=== PATIENT | male | born 1935 | race Caucasian/White ===

== ENCOUNTER 2019-06-03 16:27 | Emergency (ER) | payer OTHER ==
[~2019-06-03] VITALS: Ht 172.7 cm; Wt 59.0 kg
[2019-06-03 16:28] VITALS: Ht 172.7 cm; Wt 59.0 kg
[2019-06-03 18:56] VITALS: BP 155/83
== END 2019-06-03 18:56 | disposition home or self-care (01) ==
LOC: ED 16:27
DX: S99.921A Unspecified injury of right foot, initial encounter (principal); J44.9 Chronic obstructive pulmonary disease, unspecified; F03.90 Unspecified dementia, unspecified severity, without behavioral disturbance, psychotic disturbance, mood disturbance, and anxiety; W18.39XA Other fall on same level, initial encounter; Y93.89 Activity, other specified; Y92.098 Other place in other non-institutional residence as the place of occurrence of the external cause; Y99.8 Other external cause status
CPT/HCPCS: Q0092

== ENCOUNTER 2019-06-15 22:36 | Inpatient (IN) | payer OTHER ==
[~2019-06-15] VITALS: Ht 162.6 cm; Wt 52.0 kg
[2019-06-15 22:46] VITALS: Ht 162.6 cm; Wt 52.0 kg
[2019-06-16 00:14] LABS: CALCIUM 10.2 mg/dL (8.5-10.1); CARBON DIOXIDE 26.6 mmol/L (21-32); CHLORIDE SERUM 105 mmol/L (98-107); CREATININE SERUM 1.3 mg/dL (0.7-1.3); GLUCOSE SERUM 128 mg/dL (74-106); POTASSIUM SERUM 3.1 mmol/L (3.5-5.1); SODIUM SERUM 142 mmol/L (136-145)
[2019-06-16 00:18] LABS: ALKALINE PHOSPHATASE 98 U/L (46-116); ALT/SGPT 12 U/L (16-63); AST/SGOT 18 U/L (15-37); BILIRUBIN TOTAL 0.4 mg/dL (0.20-1.00)
[2019-06-16 00:22] LABS: ALBUMIN 2.8 g/dL (3.4-5.0); TOTAL PROTEIN, SERUM 8.8 g/dL (6.4-8.2)
[2019-06-16 00:25] LABS: BASOPHIL % 0.5 % (0-2); PLATELET COUNT 336 x10^3mcL (130-400)
[2019-06-16 00:26] LABS: RED CELL DISTRIBUTION WIDTH 16.6 % (11.5-14.5)
[2019-06-16] MEDS ORDERED: PROTONIX40 MG PO (01:39)
[2019-06-16] MEDS ORDERED: LOP600 PO (01:40)
[2019-06-16] MEDS ORDERED: PROVENTIL0.09 MG/A1 INH (01:40)
[2019-06-16] MEDS ORDERED: RESTORIL30 MG PO (01:40)
[2019-06-16] MEDS ORDERED: PROZAC40 MG PO (01:40)
[2019-06-16] MEDS ORDERED: FLONASE SENSIM5.9 ML NS (01:43)
[2019-06-16 02:21] LABS: CHOLESTEROL/HDL RATIO 3.7
[2019-06-16 02:31] LABS: FREE T4 1.06 ng/dL (0.76-1.46); FREE THYROXINE INDEX 2.8 ug/dL (1.4-4.5); T4(THYROXINE) 7.9 ug/dL (4.7-13.3)
[2019-06-16 02:38] VITALS: BP 117/69
[2019-06-16 03:18] LABS: T3 TOTAL 0.94 ng/mL
[2019-06-16 04:11] VITALS: BP 121/100
[2019-06-16 08:09] VITALS: BP 130/61
[2019-06-16 09:26] LABS: CARBON DIOXIDE 26.9 mmol/L (21-32); CHLORIDE SERUM 110 mmol/L (98-107); POTASSIUM SERUM 4.7 mmol/L (3.5-5.1); SODIUM SERUM 145 mmol/L (136-145)
[2019-06-16 10:11] LABS: CALCIUM 10.3 mg/dL (8.5-10.1); CREATININE SERUM 1.1 mg/dL (0.7-1.3); GLUCOSE SERUM 112 mg/dL (74-106); MAGNESIUM 1.1 mg/dL (1.8-2.4); PHOSPHOROUS 2.7 mg/dL (2.5-4.9)
[2019-06-16 11:01] LABS: microscopic required? NO
[2019-06-16 11:09] LABS: BASOPHIL % 0.3 % (0-2); PLATELET COUNT 290 x10^3mcL (130-400)
[2019-06-16 11:10] LABS: RED CELL DISTRIBUTION WIDTH 16.3 % (11.5-14.5)
[2019-06-16 11:42] VITALS: BP 124/96
[2019-06-16 11:43] LABS: UA SPECIFIC GRAVITY 1.015 (1.005-1.035); urine erythrocyte NEGATIVE (NEGATIVE)
[2019-06-16 11:48] LABS: AMPHETAMINE QUAL UR NONE DETECTED (See below)
[2019-06-16 15:55] VITALS: BP 144/80
[2019-06-17 07:00] LABS: BASOPHIL % 0.4 % (0-2); PLATELET COUNT 295 x10^3mcL (130-400)
[2019-06-17 07:05] LABS: CARBON DIOXIDE 23.5 mmol/L (21-32)
[2019-06-17 07:28] LABS: RED CELL DISTRIBUTION WIDTH 16.7 % (11.5-14.5)
[2019-06-17 07:46] LABS: CALCIUM 9.5 mg/dL (8.5-10.1); CHLORIDE SERUM 110 mmol/L (98-107); GLUCOSE SERUM 106 mg/dL (74-106); MAGNESIUM 1.9 mg/dL (1.8-2.4); PHOSPHOROUS 1.7 mg/dL (2.5-4.9); POTASSIUM SERUM 5.2 mmol/L (3.5-5.1); SODIUM SERUM 144 mmol/L (136-145)
[2019-06-17 08:23] VITALS: BP 154/80
[2019-06-17 11:43] VITALS: BP 156/79
[2019-06-17 17:30] VITALS: BP 189/158
[2019-06-17 18:01] VITALS: BP 155/75
[2019-06-17 18:47] LABS: CALCIUM 9.2 mg/dL (8.5-10.1); CARBON DIOXIDE 26.8 mmol/L (21-32); CHLORIDE SERUM 106 mmol/L (98-107); CREATININE SERUM 0.9 mg/dL (0.7-1.3); GLUCOSE SERUM 98 mg/dL (74-106); POTASSIUM SERUM 3.3 mmol/L (3.5-5.1); SODIUM SERUM 141 mmol/L (136-145)
[2019-06-17 19:14] LABS: BASOPHIL % 0.4 % (0-2); PLATELET COUNT 276 x10^3mcL (130-400)
[2019-06-17 19:25] LABS: RED CELL DISTRIBUTION WIDTH 16.4 % (11.5-14.5)
[2019-06-17 20:20] VITALS: BP 144/69
[2019-06-18 05:35] VITALS: BP 147/78
[2019-06-18 06:36] LABS: BASOPHIL % 0.4 % (0-2); PLATELET COUNT 255 x10^3mcL (130-400)
[2019-06-18 06:40] LABS: CALCIUM 8.4 mg/dL (8.5-10.1); CARBON DIOXIDE 22.1 mmol/L (21-32); CHLORIDE SERUM 108 mmol/L (98-107); CREATININE SERUM 0.8 mg/dL (0.7-1.3); GLUCOSE SERUM 82 mg/dL (74-106); MAGNESIUM 1.6 mg/dL (1.8-2.4); PHOSPHOROUS 2.5 mg/dL (2.5-4.9); POTASSIUM SERUM 3.1 mmol/L (3.5-5.1); SODIUM SERUM 140 mmol/L (136-145)
[2019-06-18 06:46] LABS: RED CELL DISTRIBUTION WIDTH 16.6 % (11.5-14.5)
[2019-06-18 08:26] VITALS: BP 151/66
[2019-06-18 16:24] VITALS: BP 143/67
[2019-06-18 21:01] VITALS: BP 138/63
[2019-06-19 05:02] VITALS: BP 148/85
[2019-06-19 07:15] LABS: BASOPHIL % 0.2 % (0-2); PLATELET COUNT 280 x10^3mcL (130-400)
[2019-06-19 07:19] LABS: RED CELL DISTRIBUTION WIDTH 16.3 % (11.5-14.5)
[2019-06-19 07:26] LABS: CALCIUM 9.1 mg/dL (8.5-10.1); CARBON DIOXIDE 24.1 mmol/L (21-32); CHLORIDE SERUM 106 mmol/L (98-107); CREATININE SERUM 0.7 mg/dL (0.7-1.3); GLUCOSE SERUM 87 mg/dL (74-106); MAGNESIUM 1.9 mg/dL (1.8-2.4); PHOSPHOROUS 2.5 mg/dL (2.5-4.9); POTASSIUM SERUM 3.3 mmol/L (3.5-5.1); SODIUM SERUM 140 mmol/L (136-145)
[2019-06-19 08:27] VITALS: BP 145/70
[2019-06-19 12:42] VITALS: BP 154/77
[2019-06-19 16:44] VITALS: BP 121/66
[2019-06-19 20:18] VITALS: BP 136/71
[2019-06-20 05:04] VITALS: BP 137/72
[2019-06-20 07:17] LABS: BASOPHIL % 0.2 % (0-2); PLATELET COUNT 274 x10^3mcL (130-400)
[2019-06-20 07:18] LABS: CALCIUM 9.6 mg/dL (8.5-10.1); CARBON DIOXIDE 22.9 mmol/L (21-32); CHLORIDE SERUM 105 mmol/L (98-107); CREATININE SERUM 0.9 mg/dL (0.7-1.3); GLUCOSE SERUM 85 mg/dL (74-106); MAGNESIUM 1.6 mg/dL (1.8-2.4); PHOSPHOROUS 2.7 mg/dL (2.5-4.9); POTASSIUM SERUM 3.7 mmol/L (3.5-5.1); SODIUM SERUM 140 mmol/L (136-145)
[2019-06-20 07:23] LABS: RED CELL DISTRIBUTION WIDTH 16.4 % (11.5-14.5)
[2019-06-20 11:58] VITALS: BP 133/73
[2019-06-20 12:56] VITALS: BP 133/73
== END 2019-06-20 13:45 | DRG 884 ==
LOC: ED 22:36 → DU 06-16 01:40 → MU 06-16 01:40 → DU 06-16 02:20 → MU 06-17 10:20 → DU 06-17 17:21
PROVIDERS: Student in an Organized Health Care Education/Training Program; ADMIT General Practice
DX: F03.91 Unspecified dementia, unspecified severity, with behavioral disturbance (principal); G93.41 Metabolic encephalopathy; E43 Unspecified severe protein-calorie malnutrition; R04.2 Hemoptysis; Z68.1 Body mass index [BMI] 19.9 or less, adult; E86.0 Dehydration; E87.6 Hypokalemia; E83.52 Hypercalcemia; D64.9 Anemia, unspecified; Z91.81 History of falling
CPT/HCPCS: 82962; 83880; 84439; 90658; 97116-GP; 97530-GP; G0378; G0480; J1885; J1953; J2060; J3475; J3480; J7030; J7620; Q0092